=== PATIENT | male | born 1990 | race Caucasian/White ===

== ENCOUNTER 2020-03-20 11:26 | Emergency (ER) | payer BC, OTHER ==
[~2020-03-20] VITALS: Ht 180.3 cm; Wt 83.3 kg
[2020-03-20] MEDS ORDERED: LORazepam 2 MG/ML, 1ML IV ONE (12:02)
[2020-03-20] MEDS ORDERED: LORazepam 2 MG/ML, 1ML ONE (12:11)
[2020-03-20 12:28] LABS: BASOPHILS % (AUTO) 1 % (0-1); EOSINOPHILS % (AUTO) 0 % (1-7); LYMPHOCYTES % (AUTO) 16 % (22-44); MD NO; MEAN CORPUSCULAR HEMOGLOBIN 32.7 pg (27.5-34.5); MEAN PLATELET VOLUME 7.4 fL (7.4-10.4); MONOCYTES % (AUTO) 6 % (2-9); NEUTROPHILS % (AUTO) 78 % (42-75); PLATELET COUNT 255 x10^3/uL (130-400); RED BLOOD COUNT 4.93 x10^6/uL (4.38-5.82); RED CELL DISTRIBUTION WIDTH 12.8 % (9.4-14.8)
[2020-03-20] MEDS ORDERED: SODIUM CHLORIDE 0.9% 1,000ML IVBOLUS ONE (12:30)
[2020-03-20] MEDS ORDERED: ONDANSETRON 2MG/ML, 2ML IVPush ONE (12:30)
[2020-03-20] MEDS ORDERED: SODIUM CHLORIDE FLUSH 10ML SYR IVF ONE (12:30)
[2020-03-20 12:43] LABS: ALBUMIN 4.2 g/dL (3.4-5.0); ANION GAP 9 mmol/L (5-15); CALCIUM 9.9 mg/dL (8.5-10.1); CHLORIDE 104 mmol/L (98-107); CREATININE 0.97 mg/dL (0.7-1.3)
--- NOTE | 2020-03-20 13:04 | NUR ---
PT PRESENTS TO ED WITH C/O ETOH WITHDRAWAL, N/V, ANXIETY, "SHAKING FEELING INSIDE" SINCE THIS AM, STATES THAT HE IS TRYING TO QUIT ETOH BY TAPERING SELF. USUAL AMT ETOH IS 1 PINT LIQUOR AND "A FEW BEERS" DAILY, STATES "I'M JUST DOWN TO A TALL BEER DAILY NOW." LAST DRINK THIS AM. PIV PLACED. PT MEDICATED PER EMAR, TOLERATING WELL. ALL MONITORS IN PLACE. BLANKET PROVIDED. CALL LIGHT IN REACH.
[2020-03-20 13:54] VITALS: BP 142/89
[2020-03-20] MEDS ORDERED: ONDANSETRON 2MG/ML, 2ML ONE (13:56)
--- NOTE | 2020-03-20 14:05 | NUR ---
PT GIVEN DC INSTRUCTIONS AND SCRIPT, EDUCATED REGARDING RX FOR LIBRIUM. GIVEN OP RESOURCES FOR DETOX ASSIST. PT EDUCATED NOT TO DRIVE, PT TAKING CAB HOME. PT A&O, RESPS EVEN AND UNLABORED. NADN. VALDES DC'D WITH TIP INTACT. PT AMBULATORY TO DC DESK WITH STEADY GAIT. ALL QUESTIONS ANSWERED. Addendum: 03/20/20 at 1420 by ZEV PT GIVEN DC INSTRUCTIONS AND SCRIPT, EDUCATED REGARDING RX FOR LIBRIUM. GIVEN OP RESOURCES FOR DETOX ASSIST. PT EDUCATED NOT TO DRIVE, PT TAKING CAB HOME. PT A&O, RESPS EVEN AND UNLABORED. NADN. CUMMINGS SCORE ZERO AT DC. PIV DC'D WITH TIP INTACT. PT AMBULATORY TO DC DESK WITH STEADY GAIT. ALL QUESTIONS ANSWERED.
== END 2020-03-20 14:21 | disposition home or self-care (01) ==
LOC: ED 14:05
DX: F10.139 Alcohol abuse with withdrawal, unspecified (principal); R45.4 Irritability and anger; R45.1 Restlessness and agitation; R11.2 Nausea with vomiting, unspecified; R00.2 Palpitations; Y90.0 Blood alcohol level of less than 20 mg/100 ml
CPT/HCPCS: 36415; 80048; 82040; 85025; 93005; 96361; 96374; 96375; 99284; J2060; J2405; J7030